=== PATIENT | female | born 1935 | race Caucasian/White ===

== ENCOUNTER → 2016-11-30 | Outpatient (CLI) | payer MEDICARE, OTHER ==
[~2016-11-30] MED LIST: LOSA25TA5 PO; NOVO3I SC; SITA1TAB7 PO
--- NOTE | 2016-11-30 13:17 | RADRPT ---
PROCEDURE: Noncontrast CT Head. CLINICAL INDICATION: Left sided headache for 1 month TECHNIQUE: Noncontrast CT of the head was obtained. The administered radiation dose was CTDI vol = 43.86 mGy, DLP = 630.2 mGy-cm. One or more of the following dose reduction techniques were used: Aut omated exposure control, Adjustment of the mA and/or kV according to patient size, or Use of iterati ve reconstruction technique. COMPARISON: There are no similar studies submitted for comparison. FINDINGS: There is no acute intracranial hemorrhage, midline shift, or mass effect. No abnormal extra-axial co llection is seen. The cerebral toro-white matter differentiation appears preserved. Mild diffuse cerebral sulcal and proportionate mild ventricular prominence is compatible with age-re lated diffuse cerebral volume loss. Punctate bilateral basal ganglia calcifications are nonspecific. Mild low attenuation in the periventricular and deep cerebral white matter is nonspecific, but sugg estive of mild chronic microvascular ischemic change. There is mild diffuse cerebellar vermian volum e loss, likely age-related. The cerebellar brainstem are otherwise grossly unremarkable. The basal c isterns are preserved. Intracranial calcific atherosclerotic disease involving the bilateral interna l carotid arteries and proximal intradural left vertebral artery is noted. The visualized paranasal sinuses and mastoid air cells are clear. The partially imaged orbits are grossly unremarkable. No acute fracture or suspicious osseous lesion is identified. IMPRESSION: 1. No evidence of an acute intracranial process. 2. Evidence of mild chronic microvascular ischemic change. 3. Intracranial calcific atherosclerotic disease. RPTAT: QQ Physician Sarahi Date Time Electronically viewed and signed by Physician Sarahi on 11/30/2016 13:17 ANETTE/
== END | disposition home or self-care (01) ==
LOC: C/S 11:00
PROVIDERS: ATTEND Internal Medicine
DX: R51 Headache (principal)
CPT/HCPCS: 70450